=== PATIENT | female | born 1985 | race Caucasian/White ===

== ENCOUNTER 2018-10-17 18:14 | Emergency (ER) | payer OTHER, MEDICAID, SELFPAY ==
[2018-10-17 18:16] VITALS: BP 122/80; PULSE 104; RESP 22; TEMP 37.6; O2SAT 100; BMI 18.3
--- NOTE | 2018-10-17 20:53 | DI.CT.S_ITS ---
PROCEDURE: CT ANGIO HEAD AND NECK INDICATIONS: Headache, vision, trouble, vascular request for this imaging TECHNIQUE: Pre-contrast 4.5 mm thick sections acquired from the foramen magnum to the vertex. After the administration of intravenous contrast, 1 mm thick sections acquired from the aortic arch through the [place] of [place]. Post-contrast 4.5 mm thick sections then re-acquired from the foramen magnum to the vertex. 3-dimensional lrewbqs-rxmdlvvod-sbvllfildo (MIP) and/or volume rendering reformats were acquired of the central intracranial vasculature and neck separately. COMPARISON: None. FINDINGS: Image quality: Excellent. BRAIN: CSF spaces: Ventricles are normal in size and shape. Basal cisterns are patent. No extra-axial fluid collections. Brain: No midline shift. No intracranial bleeds or masses. [place]-white matter interface appears intact. Skull and face: Calvarium and facial bones appear intact, without suspicious lesions. Orbits appear normal. Sinuses: Sinuses and mastoids are clear. HEAD CT ANGIOGRAPHY: Anterior circulation: Intracranial internal carotid arteries are normal in size and flow. The flow within the paired anterior cerebral arteries is normal and symmetric. The flow within the middle cerebral arteries is normal and symmetric. The anterior communicating artery is seen. No aneurysms are seen. Posterior circulation: Visualized portions of the vertebral arteries demonstrate normal caliber, and join to form a normal appearing basilar artery. Flow within the posterior cerebral arteries is normal and symmetric. No aneurysms are seen. NECK CT ANGIOGRAPHY: Carotid system: The great vessels demonstrate a conventional anatomy as they arise from the aortic arch. The origins of the common carotid arteries appear patent. The common carotid arteries demonstrate normal caliber and courses. The bifurcation regions are both widely patent. The internal carotid arteries demonstrate normal calibers and courses. Posterior circulation: The origins of the vertebral arteries both appear widely patent. The more superior extracranial portions of both vertebral arteries also demonstrate normal courses and calibers. They join to form a normal appearing basilar artery. Soft tissues: Visualized neck soft tissues demonstrate no suspicious abnormalities. Bones: No suspicious bony lesions. Visualized cervical spine appears normally aligned. IMPRESSION: Normal neck angiogram. No significant discrepancy with the automotive leasing sales representative radiology preliminary report. Any quantitative measurements of stenosis were performed using NASCET criteria. Dictated by: Ranjana Hansen M.D. on 10/18/2018 at 7:55 Approved by: Ranjana Hansen M.D. on 10/18/2018 at 7:57
[2018-10-17 20:59] LABS: Add Manual Diff / Slide Review NO; Basophils Absolute Auto 100 /uL (0-100); Basophils Percent Auto 0.9 % (0-2); Eosinophils Absolute Auto 100 /uL (0-450); Hematocrit 40.8 % (36-46); Hemoglobin 13.6 g/dL (12.0-16.0); Lymphocytes Absolute Auto 2000 /uL (1100-4500); Mean Corpuscular HGB Conc 33.3 % (30-36); Mean Corpuscular Hemoglobin 25.8 PG (26-34); Mean Corpuscular Volume 77.6 fL (80-100); Monocytes Absolute Auto 600 /uL (0-900); Monocytes Percent Auto 7.5 % (3-14); Neutrophils Absolute Auto 4700 /uL (1500-7000); Neutrophils Percent Auto 63.6 % (50-75); Platelet Count 336 X10^3/uL (150-400); Red Blood Cell Count 5.25 X10^6/uL (4.0-5.2); Red Cell Distribution Width 13.7 % (11.6-14.8); White Blood Cell Count 7.4 X10^3/uL (4.5-11.0)
[2018-10-17 21:00] VITALS: BP 117/83; PULSE 79; O2SAT 99
[2018-10-17 21:05] LABS: Blood Urea Nitrogen 9 mg/dL (7-17); Calcium 9.8 mg/dL (8.4-10.2); Carbon Dioxide 27 mmol/L (22-32); Chloride 104 mmol/L (98-107); Estimated Glomerular Filt Rate > 60.0 mL/min (>60); Glucose 93 mg/dL (70-100); HEMOLYSIS < 15 (0-50); Potassium 3.4 mmol/L (3.4-5.1); Sodium 141 mmol/L (137-145)
[2018-10-17 22:26] VITALS: BP 113/80; PULSE 87; RESP 16; O2SAT 100
--- NOTE | 2018-10-17 22:36 | ED.NEUROSD ---
HPI - Neuro Symptoms/Deficit General Chief Complaint: Neuro Symptoms/Deficit Stated Complaint: blurry vision, headaches lt side, veins distending Time Seen by Provider: 10/17/18 20:11 Source: patient and family Mode of arrival: ambulatory Limitations: no limitations History of Present Illness HPI Narrative: 33-year-old female nonsmoker with extensive history vague neurologic symptoms including headaches, blurred vision and some bilateral shoulder and upper extremity pain. Years ago she had extensive evaluations and it was thought that she had subclavian steal syndrome. She has been placed on steroids and near complete resolution of symptoms for quite some time but her symptoms started up again a few months ago. She has an appointment with vascular surgery in about a month and they requested she obtain CT angiography of head and neck prior to that visit. Her symptoms have been present for quite some time but gradually worsening hence her visit to us. She denies any recent injury or travel. Onset (ago): month(s) Location: left arm History of same: Yes Severity: moderate Quality: tingling Relieving factors: none Exacerbating factors: none Context: gradual onset On Anticoagulants: No Associated symptoms: headaches and weakness Treatments Prior to Arrival: none Related Data Allergies Allergy/AdvReac Type Severity Reaction Status Date / Time metoprolol Allergy Verified 10/17/18 18:42 Review of Systems Constitutional Denies chills, Denies fever(s), Denies lethargy and Reports weakness Eyes Reports blurry vision, Denies change in vision, Denies eye discharge, Denies irritation and Denies loss of vision ENT Ears, Nose, Mouth, and Throat: Denies change in voice, Denies neck pain and Denies sore throat Cardiovascular Denies chest pain, Denies irregular heart rhythm, Denies lightheadedness, Denies palpitations, Denies dyspnea, Denies dyspnea on exertion and Denies orthopnea Respiratory Denies cough, Denies dyspnea, Denies dyspnea on exertion and Denies wheezing Gastrointestinal Gastrointestinal: Denies abdominal pain, Denies change in bowel habits, Denies diarrhea, Denies nausea and Denies vomiting Genitourinary Denies hematuria, Denies flank pain, Denies urinary incontinence and Denies urinary urgency Musculoskeletal Denies neck pain and Reports tingling Integumentary/Breasts Denies pruritus, Denies erythema, Denies rash and Denies wounds Neurologic Denies confusion, Denies loss of vision, Reports tingling, Reports paresthesias and Reports weakness Psychiatric Denies anxiety, Denies confusion, Denies depression, Denies homicidal ideation and Denies suicidal ideation Endocrine Denies palpitations Hematologic/Lymphatic Denies easy bruising Allergic/Immunologic Denies wheezing [facility] Social History Smoking Status: Never smoker Social History Smoking Status: Never smoker Exam Narrative Exam Narrative: GENERAL: 33-year-old female appears stated age, resting comfortably but anxious HEAD: Atraumatic. Normocephalic. No temporal or scalp tenderness. EYES: Pupils equal round and reactive. Extraocular motions intact. No scleral icterus. No injection or drainage. ENT: Nose without bleeding, purulent drainage or septal hematoma. Throat without erythema, tonsillar hypertrophy or exudate. Uvula midline. Airway patent. NECK: Trachea midline. No JVD or lymphadenopathy. Supple, nontender, no meningeal signs. CARDIOVASCULAR: Regular rate and rhythm without murmurs, gallops, or rubs. RESPIRATORY: Clear to auscultation. Breath sounds equal bilaterally. No wheezes, rales, or rhonchi. GASTROINTESTINAL: Abdomen soft, non-tender, nondistended. No hepato-splenomegaly, or palpable masses. No guarding. EXTREMITIES: No clubbing, cyanosis, or edema. No joint tenderness, effusion, or edema noted. BACK: Nontender without deformity or crepitance. No flank tenderness. NEURO: AOx3. SKIN: No rash or erythema. NIH Stroke Scale 1a. LOC: Patient is alert and keenly responsive (0) 1b. LOC Questions: Patient answers both LOC questions accurately (0) 1c. LOC Commands: Patient performs both tasks correctly (0) 2. Best Gaze: Normal (0) 3. Visual: No visual loss (0) 4. Facial palsy: Normal symmetrical movements (0) 5. Motor arm: No drift (0) 6. Motor leg: No drift (0) 7. Limb ataxia: Absent (0) 8. Sensory: Normal (0) 9. Best language: No aphasia; normal (0) 10. Dysarthria: Normal (0) 11. Extinction and inattention: No abnormality (0) NIHSS: 0 Initial Vital Signs Initial Vital Signs: Vital Signs Temperature 99.6 F 10/17/18 18:16 Pulse Rate 104 H 10/17/18 18:16 Respiratory Rate 22 10/17/18 18:16 Blood Pressure 122/80 10/17/18 18:16 Pulse Oximetry 100 10/17/18 18:16 Course Orders Ordered: ED Orders 10/17/18 20:30 Basic Metabolic Panel Stat Complete Blood Count AUTO DIFF Stat 10/17/18 20:53 CT angio head and neck Stat Vital Signs - 8 hr 10/17/18 21:00 10/17/18 22:26 10/17/18 23:00 Pulse Rate 79 87 80 Respiratory Rate 16 16 Blood Pressure [Left Arm] 117/83 113/80 113/72 Pulse Oximetry 99 100 100 MDM - Neuro Symptoms/Deficit Lab Data Result diagrams: 10/17/18 20:30 10/17/18 20:30 Lab Results 10/17/18 10/17/18 Range/Units 20:30 20:30 WBC 7.4 (4.5-11.0) X10^3/uL RBC 5.25 H (4.0-5.2) X10^6/uL Hgb 13.6 (12.0-16.0) g/dL Hct 40.8 (36-46) % MCV 77.6 L (80-100) fL MCH 25.8 L (26-34) PG MCHC 33.3 (30-36) % RDW 13.7 (11.6-14.8) % Plt Count 336 (150-400) X10^3/uL Neut % (Auto) 63.6 (50-75) % Lymph % (Auto) 27.0 (25-40) % [place] % (Auto) 7.5 (3-14) % Eos % (Auto) 1.0 L (2-4) % Baso % (Auto) 0.9 (0-2) % Neut # (Auto) 4700 (4403-2714) /uL Lymph # (Auto) 2000 (4516-5624) /uL [place] # (Auto) 600 (0-900) /uL Eos # (Auto) 100 (0-450) /uL Baso # (Auto) 100 (0-100) /uL Sodium 141 (137-145) mmol/L Potassium 3.4 (3.4-5.1) mmol/L Chloride 104 (98-107) mmol/L Carbon Dioxide 27 (22-32) mmol/L BUN 9 (7-17) mg/dL Creatinine 0.60 (0.52-1.04) mg/dL Estimated GFR > 60.0 (>60) mL/min BUN/Creatinine Ratio 15.0 (6-22) Glucose 93 (70-100) mg/dL Calcium 9.8 (8.4-10.2) mg/dL Point of Care Testing Test Results Negative Urine Dip Bedside Urine Glucose Negative Bedside Urine Bilirubin - Negative Bedside Urine Ketone - Negative Urine Specific [place] 1.015 Bedside Urine Occult Blood - Negative Bedside Urine pH 8.5 Bedside Urine Protein - Negative Bedside Urine Urobilinogen - Negative Bedside Urine Nitrite - Negative Bedside Urine Leukocytes - Negative Esterase Imaging Data CT scan - head: Radiologist's impression: Negative exam MDM Narrative Medical decision making narrative: Multiple etiologies for patient's symptoms considered including: [stroke vs. subclavian steal vs. other] Patient's symptoms improved or duration of stay with above-stated therapies. Findings and discharge diagnosis discussed with patient/family followed by verbalization of understanding Return precautions discussed with patient/family whom verbalize understanding. Discharge Plan Departure Patient Disposition: Home Clinical Impression: Dizziness Discharge Date/Time: 10/17/18 23:27 Interventions: ED Discharge Assessment Last Done: 10/17/18 23:27 Instructions: DI for Dizziness-Nonvertigo Activity Restrictions/Additional Instructions: *What to do: *Continue to take medications as directed *Follow up with your primary care provider in 2-3 days, call for an appointment. Let them know you were seen in the Emergency Department and that we ask that you be seen in follow up *Return to ER if you should have any new, worsening or concerning symptoms
[2018-10-17 23:00] VITALS: BP 113/72; PULSE 80; RESP 16; O2SAT 100
--- NOTE | 2018-10-18 03:16 | ED_ITS ---
HPI - Neuro Symptoms/Deficit General Chief Complaint: Neuro Symptoms/Deficit Stated Complaint: blurry vision, headaches lt side, veins distending Time Seen by Provider: 10/17/18 20:11 Source: patient and family Mode of arrival: ambulatory Limitations: no limitations History of Present Illness HPI Narrative: 33-year-old female nonsmoker with extensive history vague neurologic symptoms including headaches, blurred vision and some bilateral shoulder and upper extremity pain. Years ago she had extensive evaluations and it was thought that she had subclavian steal syndrome. She has been placed on steroids and near complete resolution of symptoms for quite some time but her symptoms started up again a few months ago. She has an appointment with vascular surgery in about a month and they requested she obtain CT angiography of head and neck prior to that visit. Her symptoms have been present for quite some time but gradually worsening hence her visit to us. She denies any recent injury or travel. Onset (ago): month(s) Location: left arm History of same: Yes Severity: moderate Quality: tingling Relieving factors: none Exacerbating factors: none Context: gradual onset On Anticoagulants: No Associated symptoms: headaches and weakness Treatments Prior to Arrival: none Related Data Allergies Allergy/AdvReac Type Severity Reaction Status Date / Time metoprolol Allergy Verified 10/17/18 18:42 Review of Systems Constitutional Denies chills, Denies fever(s), Denies lethargy and Reports weakness Eyes Reports blurry vision, Denies change in vision, Denies eye discharge, Denies irritation and Denies loss of vision ENT Ears, Nose, Mouth, and Throat: Denies change in voice, Denies neck pain and Denies sore throat Cardiovascular Denies chest pain, Denies irregular heart rhythm, Denies lightheadedness, Denies palpitations, Denies dyspnea, Denies dyspnea on exertion and Denies orthopnea Respiratory Denies cough, Denies dyspnea, Denies dyspnea on exertion and Denies wheezing Gastrointestinal Gastrointestinal: Denies abdominal pain, Denies change in bowel habits, Denies diarrhea, Denies nausea and Denies vomiting Genitourinary Denies hematuria, Denies flank pain, Denies urinary incontinence and Denies urinary urgency Musculoskeletal Denies neck pain and Reports tingling Integumentary/Breasts Denies pruritus, Denies erythema, Denies rash and Denies wounds Neurologic Denies confusion, Denies loss of vision, Reports tingling, Reports paresthesias and Reports weakness Psychiatric Denies anxiety, Denies confusion, Denies depression, Denies homicidal ideation and Denies suicidal ideation Endocrine Denies palpitations Hematologic/Lymphatic Denies easy bruising Allergic/Immunologic Denies wheezing [facility] Social History Smoking Status: Never smoker Social History Smoking Status: Never smoker Exam Narrative Exam Narrative: GENERAL: 33-year-old female appears stated age, resting comfortably but anxious HEAD: Atraumatic. Normocephalic. No temporal or scalp tenderness. EYES: Pupils equal round and reactive. Extraocular motions intact. No scleral icterus. No injection or drainage. ENT: Nose without bleeding, purulent drainage or septal hematoma. Throat without erythema, tonsillar hypertrophy or exudate. Uvula midline. Airway patent. NECK: Trachea midline. No JVD or lymphadenopathy. Supple, nontender, no me ningeal signs. CARDIOVASCULAR: Regular rate and rhythm without murmurs, gallops, or rubs. RESPIRATORY: Clear to auscultation. Breath sounds equal bilaterally. No wheezes, rales, or rhonchi. GASTROINTESTINAL: Abdomen soft, non-tender, nondistended. No hepato- splenomegaly, or palpable masses. No guarding. EXTREMITIES: No clubbing, cyanosis, or edema. No joint tenderness, effusion, or edema noted. BACK: Nontender without deformity or crepitance. No flank tenderness. NEURO: AOx3. SKIN: No rash or erythema. NIH Stroke Scale 1a. LOC: Patient is alert and keenly responsive (0) 1b. LOC Questions: Patient answers both LOC questions accurately (0) 1c. LOC Commands: Patient performs both tasks correctly (0) 2. Best Gaze: Normal (0) 3. Visual: No visual loss (0) 4. Facial palsy: Normal symmetrical movements (0) 5. Motor arm: No drift (0) 6. Motor leg: No drift (0) 7. Limb ataxia: Absent (0) 8. Sensory: Normal (0) 9. Best language: No aphasia; normal (0) 10. Dysarthria: Normal (0) 11. Extinction and inattention: No abnormality (0) NIHSS: 0 Initial Vital Signs Initial Vital Signs: Vital Signs Temperature 99.6 F 10/17/18 18:16 Pulse Rate 104 H 10/17/18 18:16 Respiratory Rate 22 10/17/18 18:16 Blood Pressure 122/80 10/17/18 18:16 Pulse Oximetry 100 10/17/18 18:16 Course Orders Ordered: ED Orders 10/17/18 20:30 Basic Metabolic Panel Stat Complete Blood Count AUTO DIFF Stat 10/17/18 20:53 CT angio head and neck Stat Vital Signs - 8 hr 10/17/18 21:00 10/17/18 22:26 10/17/18 23:00 Pulse Rate 79 87 80 Respiratory Rate 16 16 Blood Pressure [Left Arm] 117/83 113/80 113/72 Pulse Oximetry 99 100 100 MDM - Neuro Symptoms/Deficit Lab Data Result diagrams: 10/17/18 20:30 10/17/18 20:30 Lab Results 10/17/18 10/17/18 Range/Units 20:30 20:30 WBC 7.4 (4.5-11.0) X10^3/uL RBC 5.25 H (4.0-5.2) X10^6/uL Hgb 13.6 (12.0-16.0) g/dL Hct 40.8 (36-46) % MCV 77.6 L (80-100) fL MCH 25.8 L (26-34) PG MCHC 33.3 (30-36) % RDW 13.7 (11.6-14.8) % Plt Count 336 (150-400) X10^3/uL Neut % (Auto) 63.6 (50-75) % Lymph % (Auto) 27.0 (25-40) % [place] % (Auto) 7.5 (3-14) % Eos % (Auto) 1.0 L (2-4) % Baso % (Auto) 0.9 (0-2) % Neut # (Auto) 4700 (8512-2287) /uL Lymph # (Auto) 2000 (4375-9533) /uL [place] # (Auto) 600 (0-900) /uL Eos # (Auto) 100 (0-450) /uL Baso # (Auto) 100 (0-100) /uL Sodium 141 (137-145) mmol/L Potassium 3.4 (3.4-5.1) mmol/L Chloride 104 (98-107) mmol/L Carbon Dioxide 27 (22-32) mmol/L BUN 9 (7-17) mg/dL Creatinine 0.60 (0.52-1.04) mg/dL Estimated GFR > 60.0 (>60) mL/min BUN/Creatinine Ratio 15.0 (6-22) Glucose 93 (70-100) mg/dL Calcium 9.8 (8.4-10.2) mg/dL Point of Care Testing Test Results Negative Urine Dip Bedside Urine Glucose Negative Bedside Urine Bilirubin - Negative Bedside Urine Ketone - Negative Urine Specific [place] 1.015 Bedside Urine Occult Blood - Negative Bedside Urine pH 8.5 Bedside Urine Protein - Negative Bedside Urine Urobilinogen - Negative Bedside Urine Nitrite - Negative Bedside Urine Leukocytes - Negative Esterase Imaging Data CT scan - head: Radiologist's impression: Negative exam MDM Narrative Medical decision making narrative: Multiple etiologies for patient's symptoms considered including: [stroke vs. subclavian steal vs. other] Patient's symptoms improved or duration of stay with above-stated therapies. Findings and discharge diagnosis discussed with patient/family followed by verbalization of understanding Return precautions discussed with patient/family whom verbalize understanding. Discharge Plan Departure Patient Disposition: Home Clinical Impression: Dizziness Discharge Date/Time: 10/17/18 23:27 Interventions: ED Discharge Assessment Last Done: 10/17/18 23:27 Instructions: DI for Dizziness-Nonvertigo Activity Restrictions/Additional Instructions: *What to do: *Continue to take medications as directed *Follow up with your primary care provider in 2-3 days, call for an appointment. Let them know you were seen in the Emergency Department and that we ask that you be seen in follow up *Return to ER if you should have any new, worsening or concerning symptoms
== END 2018-10-17 23:27 | disposition home or self-care (01) ==
PROVIDERS: Emergency Provider Emergency Medicine
DX: R42 Dizziness and giddiness (principal); R51 Headache; H53.8 Other visual disturbances
CPT/HCPCS: 36591; 70496; 70498; 80048; 81003; 81025; 85025; 99283; 99284; Q9967

== ENCOUNTER 2018-10-31 22:34 | Emergency (ER) | payer OTHER, MEDICAID, SELFPAY ==
--- NOTE | 2018-10-31 22:43 | DI.RAD.S_ITS ---
PROCEDURE: XR CHEST 1V INDICATIONS: chest pain TECHNIQUE: One view of the chest was acquired. COMPARISON: None. FINDINGS: Surgical changes and devices: None. Lungs and pleura: Lungs are clear. No pleural effusions or pneumothorax. Mediastinum: Mediastinal contours appear normal. Heart size is normal. Bones and chest wall: No suspicious bony lesions. Overlying soft tissues appear unremarkable. IMPRESSION: No acute cardiopulmonary findings. Dictated by: Angelina Siddiqui M.D. on 11/01/2018 at 8:30 Approved by: Angelina Siddiqui M.D. on 11/01/2018 at 8:30
[2018-10-31 22:44] VITALS: BP 124/72; PULSE 78; RESP 15; TEMP 36.6; O2SAT 100; BMI 18.1
[2018-10-31 23:15] LABS: Add Manual Diff / Slide Review NO; Basophils Absolute Auto 0 /uL (0-100); Basophils Percent Auto 0.4 % (0-2); Eosinophils Absolute Auto 100 /uL (0-450); Eosinophils Percent Auto 1.2 % (2-4); Hematocrit 37.6 % (36-46); Hemoglobin 12.2 g/dL (12.0-16.0); Lymphocytes Absolute Auto 2200 /uL (1100-4500); Lymphocytes Percent Auto 29.7 % (25-40); Mean Corpuscular HGB Conc 32.5 % (30-36); Mean Corpuscular Hemoglobin 25.5 PG (26-34); Mean Corpuscular Volume 78.7 fL (80-100); Monocytes Absolute Auto 600 /uL (0-900); Monocytes Percent Auto 8.3 % (3-14); Neutrophils Absolute Auto 4400 /uL (1500-7000); Neutrophils Percent Auto 60.4 % (50-75); Platelet Count 275 X10^3/uL (150-400); Red Blood Cell Count 4.78 X10^6/uL (4.0-5.2); Red Cell Distribution Width 13.9 % (11.6-14.8); White Blood Cell Count 7.3 X10^3/uL (4.5-11.0)
--- NOTE | 2018-10-31 23:19 | PC.NURSE ---
Pt has had echo which showed leaky valve. Hx of vasculitis and treated with prednisone. Doing holter monitor thru PCP and in process of getting set up with cardiology, due to intermittent episodes of bradycardia. Has tingling/pain in arm, which is new for her. She does have some neck pain that has been ongoing. No known trauma.
[2018-10-31 23:21] LABS: INR 0.9 (0.9-1.3); Prothrombin Time 10.2 SECONDS (10.1-12.7)
[2018-10-31 23:23] LABS: Alanine Aminotransferase 12 IU/L (9-52); Albumin 3.8 g/dL (3.5-5.0); Albumin Globulin Ratio 1.4 (1.0-2.8); Alkaline Phosphatase 33 U/L (38-126); Aspartate Aminotransferase 14 IU/L (14-36); BUN Creatinine Ratio 21.7 (6-22); Bilirubin Total 0.3 mg/dL (0.2-1.3); Blood Urea Nitrogen 13 mg/dL (7-17); Calcium 8.9 mg/dL (8.4-10.2); Carbon Dioxide 27 mmol/L (22-32); Chloride 105 mmol/L (98-107); Creatine Kinase 25 U/L (30-135); Estimated Glomerular Filt Rate > 60.0 mL/min (>60); Globulin 2.7 g/dL (1.7-4.1); Glucose 91 mg/dL (70-100); HEMOLYSIS < 15 (0-50); Lipase 211 U/L (23-300); Potassium 3.9 mmol/L (3.4-5.1); Sodium 139 mmol/L (137-145); Total Protein 6.5 g/dL (6.3-8.2)
[2018-10-31 23:24] LABS: PTT Partial Thromboplastin Tim 28 SECONDS (26.4-36.2)
[2018-10-31 23:35] LABS: Troponin I < 0.012 ng/mL (0.01-0.034)
--- NOTE | 2018-10-31 23:45 | ED_ITS ---
HPI - Chest Pain General Chief Complaint: Chest Pain Stated Complaint: states heart issues Time Seen by Provider: 10/31/18 23:12 Source: patient Mode of arrival: ambulatory Limitations: no limitations History of Present Illness HPI narrative: 33-year-old female comes in with complaint of chest pain for 1 month. She states that it worsened about 3 days ago. She states in her left arm radiating in her shoulder between her shoulder blades and chest. She states that it is worse when her left arm is up and she is using about her head frequently. She states that Motrin helped. She states that her left arm numb. Patient states that it can happen while she is walking. Um she states it does not seem to always be associated with exertion. Patient states sometimes she feels dizzy or lightheaded, she denies any syncope no shortness of breath. No difficulty with thumb breathing but sometimes feels like she is getting enough air. She states she does not increase her respiratory rate. She sometimes feels nauseated, she denies any vomiting. No diarrhea, no constipation or urinary issues. She states that she takes cyclobenzaprine for muscle spasms in her neck. She sometimes takes prednisone which also seems to help. She denies any prior surgeries. No tobacco, alcohol or illicit. Her father had a CABG in his 50s along with several uncles who in their 50s from cardiac issues. No other pulmonary or embolic history in family. Her primary care has had her see cardiology. She saw cardiology in telling him and was referred to Dr. Chahal. She had an episode of tachycardia in the 170 range overnight while wearing a ZIO patch. She states she had an echo recently that showed a small leak for 1 of the valves. Related Data Allergies Allergy/AdvReac Type Severity Reaction Status Date / Time metoprolol Allergy Verified 10/31/18 22:43 Review of Systems Review of Systems ROS Unobtainable: All systems reviewed & are unremarkable except as noted in HPI and below Constitutional Denies chills, Denies fever(s), Denies lethargy and Denies weakness ENT Ears, Nose, Mouth, and Throat: Reports neck pain Cardiovascular Reports chest pain, Denies chest pain at rest, Reports chest pain with activity (Movement of left), Denies diaphoresis, Denies syncope, Reports rapid heart rate (Had tachycardia on ZIO patch), Denies edema, Denies irregular heart rhythm, Denies lightheadedness, Denies palpitations, Denies dyspnea, Denies dyspnea on exertion and Denies orthopnea Respiratory Denies change in phlegm color, Denies chest congestion, Denies cough, Denies dyspnea, Denies dyspnea on exertion and Denies wheezing Gastrointestinal Gastrointestinal: Denies abdominal pain, Denies melena, Denies hematochezia, Denies change in bowel habits, Denies diarrhea, Reports nausea and Denies vomiting Genitourinary Denies hematuria, Denies urinary frequency, Denies dysuria, Denies flank pain and Denies urinary urgency Musculoskeletal Reports as per HPI, Reports arthralgias (Left arm), Denies muscle weakness, Reports neck pain and Reports tingling (Left arm) Integumentary/Breasts Denies erythema, Denies rash and Denies unusual bruising Neurologic Denies syncope, Denies focal weakness, Denies sensory deficit, Reports tingling (Left arm) and Denies weakness Endocrine Denies palpitations Allergic/Immunologic Denies wheezing [facility] Social History Smoking Status: Never smoker Social History Smoking Status: Never smoker Exam Narrative Exam Narrative: GENERAL: Alert and oriented x three, thin, well-appearing female in no acute distress. HEENT: Head normocephalic, atraumatic, EOMI, pupils reactive, face symmetric, moist mucous membranes NECK: Supple, full range of motion CARDIOVASCULAR: Regular rate and rhythm without murmurs, rubs or gallops. No JVD. No edema in lower extremities. 2+ pulses all 4 extremities RESPIRATORY: Breath sounds equal bilaterally, no wheezes rales or rhonchi. No tachypnea accessory muscle use. ABDOMEN: Soft, nontender. Normoactive bowel sounds all 4 quadrants. No guarding or rebound, rigidity, no mass : No CVA tenderness EXTREMITIES: Normal range of motion, no clubbing or edema. Neurovascularly intact NEUROLOGICAL: Cranial nerves II through XII grossly intact. Moving all extremities SKIN: Warm, dry, no petechiae, no rashes or lesions. Initial Vital Signs Initial Vital Signs: Vital Signs Temperature 97.8 F 10/31/18 22:44 Pulse Rate 78 10/31/18 22:44 Respiratory Rate 15 10/31/18 22:44 Blood Pressure 124/72 10/31/18 22:44 Pulse Oximetry 100 10/31/18 22:44 Scores HEART Score Heart Score history: Slightly Suspicious Heart Score EKG: Normal Heart Score Age: < 45 years old Heart Score risk factors: 1-2 risk factors Heart Score troponin: < or = to normal limit Heart Score Total: 1 PERC Score Age greater than or equal to 50 years: No Heart rate greater than or equal to 100 bpm: No Room Air O2 Sat less than 95%: No Unilateral leg swelling: No Recent trauma or surgery: No Hemoptysis: No Prior PE or DVT: No Hormone Use: No Total PERC Score: 0 Course Orders Ordered: ED Orders 10/31/18 22:43 XR chest 1V Stat EKG-12 Lead Stat 10/31/18 22:51 Complete Blood Count AUTO DIFF Stat Comprehensive Metabolic Panel Stat Lipase Stat Partial Thromboplastin Time Stat Prothrombin Time INR Stat Troponin & CK Cardiac Panel Stat Vital Signs - 8 hr 10/31/18 22:44 11/01/18 00:29 Temperature 97.8 F Pulse Rate 78 78 Respiratory Rate 15 16 Blood Pressure 124/72 Blood Pressure [Left Arm] 104/65 Pulse Oximetry 100 100 MDM - Chest Pain Lab Data Attestation: I reviewed the patient's lab results. Result diagrams: 10/31/18 22:51 10/31/18 22:51 Lab Results 10/31/18 10/31/18 10/31/18 Range/Units 22:51 22:51 22:51 WBC 7.3 (4.5-11.0) X10^3/uL RBC 4.78 (4.0-5.2) X10^6/uL Hgb 12.2 (12.0-16.0) g/dL Hct 37.6 (36-46) % MCV 78.7 L (80-100) fL MCH 25.5 L (26-34) PG MCHC 32.5 (30-36) % RDW 13.9 (11.6-14.8) % Plt Count 275 (150-400) X10^3/uL Neut % (Auto) 60.4 (50-75) % Lymph % (Auto) 29.7 (25-40) % [place] % (Auto) 8.3 (3-14) % Eos % (Auto) 1.2 L (2-4) % Baso % (Auto) 0.4 (0-2) % Neut # (Auto) 4400 (6992-0619) /uL Lymph # (Auto) 2200 (0623-4257) /uL [place] # (Auto) 600 (0-900) /uL Eos # (Auto) 100 (0-450) /uL Baso # (Auto) 0 (0-100) /uL PT 10.2 (10.1-12.7) SECONDS INR 0.9 (0.9-1.3) APTT 28 (26.4-36.2) SECONDS Sodium 139 (137-145) mmol/L Potassium 3.9 (3.4-5.1) mmol/L Chloride 105 (98-107) mmol/L Carbon Dioxide 27 (22-32) mmol/L BUN 13 (7-17) mg/dL Creatinine 0.60 (0.52-1.04) mg/dL Estimated GFR > 60.0 (>60) mL/min BUN/Creatinine Ratio 21.7 (6-22) Glucose 91 (70-100) mg/dL Calcium 8.9 (8.4-10.2) mg/dL Total Bilirubin 0.3 (0.2-1.3) mg/dL AST 14 (14-36) IU/L ALT 12 (9-52) IU/L Alkaline Phosphatase 33 L (38-126) U/L Total Creatine Kinase 25 L (30-135) U/L CK-MB (CK-2) TNP CK-MB (CK-2) Rel Index TNP Troponin I < 0.012 (0.01-0.034) ng/mL Total Protein 6.5 (6.3-8.2) g/dL Albumin 3.8 (3.5-5.0) g/dL Globulin 2.7 (1.7-4.1) g/dL Albumin/Globulin Ratio 1.4 (1.0-2.8) Lipase 211 (23-300) U/L Point of Care Testing Test Results Negative Imaging Data Chest x-ray: Attestation: I personally reviewed and interpreted this imaging study as follows: My impression: nap, no pneumothorax, no infiltrate. Normal mediastinum. No fracture. ECG Data Attestation: I personally reviewed and interpreted this ECG as follows: Prior ECG tracings: not available for review Interpretation: Sinus rhythm with a rate of 72 P are 141 QRS 86 and QTC of 383. No ST elevation or depression appreciated. No prior available. MDM Narrative Medical decision making narrative: By patient's description I suspect her left after extremity pain which is worse with movement of her left upper extremity is more related to musculoskeletal issues. She does feel like she may have been having some other cardiac issues and is in the process of getting in to see Dr. Chahal. She has been following with her regular telecommunications field engineer. There are no findings of cardiac arrhythmias today, troponin is negative, chest x-ray is clear. Lab work does not show any other major changes. Patient felt comfortable with this plan and following up. Discharge Plan Departure Patient Disposition: Home Clinical Impression: Atypical chest pain, Numbness and tingling in left arm Discharge Date/Time: 11/01/18 00:58 Interventions: ED Discharge Assessment Last Done: 11/01/18 00:58 Instructions: DI for Atypical Chest Pain Activity Restrictions/Additional Instructions: Follow-up with your physician in the next 24-48 hours for recheck. If you prefer you can follow up with your telecommunications field engineer. Continue any home medications as prescribed by your physician. You may continue ibuprofen up to 800 mg every 8 hours. You may also take Tylenol up to a 1000 mg every 8 hours as needed. Return to the emergency department for fevers greater than 100.4 F, passing out, persistent vomiting, any chest pain, shortness of breath, black or bloody stools, swelling of her extremities or other new or concerning symptoms. Referrals: Rikki Chahal MD [Physician] -
[2018-11-01 00:29] VITALS: BP 104/65; PULSE 78; RESP 16; O2SAT 100
== END 2018-11-01 00:58 | disposition home or self-care (01) ==
PROVIDERS: Emergency Provider Emergency Medicine
DX: R07.89 Other chest pain (principal); R20.0 Anesthesia of skin
CPT/HCPCS: 36591; 71045; 80053; 81025; 82550; 83690; 84484; 85025; 85610; 85730; 93005; 99283; 99285

== ENCOUNTER 2019-01-24 00:59 | Emergency (ER) | payer OTHER, MEDICAID, SELFPAY ==
--- NOTE | 2019-01-24 01:04 | DI.RAD.S_ITS ---
PROCEDURE: XR CHEST 1V INDICATIONS: chest pain TECHNIQUE: One view of the chest was acquired. COMPARISON: [facility], CR, XR CHEST 1V, 10/31/2018, 23:05. FINDINGS: Surgical changes and devices: None. Lungs and pleura: Lungs are clear. No pleural effusions or pneumothorax. Mediastinum: Mediastinal contours appear normal. Heart size is normal. Bones and chest wall: No suspicious bony lesions. Overlying soft tissues appear unremarkable. IMPRESSION: No acute disease. Dictated by: Jf Arthur M.D. on 01/24/2019 at 8:59 Approved by: Jf Arthur M.D. on 01/24/2019 at 9:00
[2019-01-24 01:12] VITALS: BP 131/93; PULSE 85; RESP 16; TEMP 36.4; O2SAT 100; BMI 18.1
--- NOTE | 2019-01-24 01:38 | ED_ITS ---
HPI - Chest Pain General Chief Complaint: Chest Pain Stated Complaint: nausea chest pain irregular heartbeat Time Seen by Provider: 01/24/19 01:03 Source: patient Mode of arrival: Ambulatory Limitations: no limitations History of Present Illness HPI narrative: 33-year-old female here for evaluation of left-sided chest discomfort. She also states that she feels a ?bubbling? sensation that starts in her epigastric region and moves up to the left side of her neck. This does not appear to be new symptoms. She has had an endoscopy in the past for dysphagia. She states that when she eats she does feel like that her stomach states full for an extended period of time. She denies any nausea. No problems breathing. Has not tried anything for symptoms prior to arrival Related Data Previous Rx's Medication Instructions Recorded metoclopramide HCl [Reglan] 10 mg PO Q6H PRN #14 tab 01/24/19 Allergies Allergy/AdvReac Type Severity Reaction Status Date / Time metoprolol Allergy Verified 01/24/19 01:12 Review of Systems Constitutional Constitutional: Denies fever(s) and Denies headache(s) ENT Ears, Nose, Mouth, and Throat: Denies headache(s) Cardiovascular Cardiovascular: Reports chest pain, Denies edema, Denies palpitations and Denies dyspnea Respiratory Respiratory: Denies dyspnea Gastrointestinal Gastrointestinal: Reports abdominal pain (Epigastric), Denies belching, Denies nausea and Denies vomiting Genitourinary Genitourinary: Denies dysuria Musculoskeletal Musculoskeletal: Denies back pain and Denies arthralgias Integumentary/Breasts Skin/Breast: Denies lesions and Denies rash Neurologic Neurologic: Denies behavioral changes and Denies headache(s) Psychiatric Psychiatric: Denies behavioral changes Endocrine Endocrine: Denies palpitations Hematologic/Lymphatic Hematologic/Lymphatic: Denies easy bleeding and Denies easy bruising [facility] Medical History Dysphagia (Acute) Heart palpitations (Inactive) Family History (Updated 10/31/18 @ 23:49 by Daisy Charles DO) Father Hx of CABG Social History Smoking Status: Never smoker Social History Smoking Status: Never smoker Exam Initial Vital Signs Initial Vital Signs: Vital Signs Temperature 97.6 F 01/24/19 01:12 Pulse Rate 85 01/24/19 01:12 Respiratory Rate 16 01/24/19 01:12 Blood Pressure 131/93 H 01/24/19 01:12 Pulse Oximetry 100 01/24/19 01:12 Const General: cooperative and comfortable Orientation: alert and awake HENMT Head: normal to inspection and normocephalic Resp Effort & Inspection: normal respiratory effort Auscultation: clear to auscultation bilaterally Cardio Rate: regular rate Rhythm: regular rhythm GI Inspection: non-distended Palpation: soft Skin Lesions: no lesions Rashes: no rashes Neuro General: alert, awake and oriented x3 Cognition: normal cognition Speech: speech normal Motor: muscle tone normal throughout Extrem General: normal to inspection and capillary refill normal Psych Appearance: grossly normal and well kempt Course Orders Ordered: ED Orders 01/24/19 01:04 XR chest 1V Stat EKG-12 Lead Stat Vital Signs Vital signs: Vital Signs - 8 hr 01/24/19 01:12 01/24/19 02:00 Temperature 97.6 F Pulse Rate 85 64 Respiratory Rate 16 16 Blood Pressure 131/93 H 103/73 Pulse Oximetry 100 96 MDM - Chest Pain Imaging Data Chest x-ray: Attestation: I personally reviewed and interpreted this imaging study as follows: My impression: Normal size heart, no free air, no pneumonia ECG Data Attestation: I personally reviewed and interpreted this ECG as follows: Prior ECG tracings: not available for review Interpretation: Sinus rhythm Normal axis Normal QRS Normal QTC No ST T wave changes MDM Narrative Medical decision making narrative: I have low suspicion for ACS. Her chest x- ray is negative. Her EKG is unremarkable. I do suspect this is GI related. It is epigastric pain that ?bubbles? up and left side of her neck. She states that she has had a barium swallow in the past which she reports was unremarkable. She has had a Holter monitor in the past which showed SVT. She has had no ectopy here in the ER. Will hold on further workup for now. Doubt emergent condition. Will have the patient follow with primary provider. She expressed understanding and agreement with plan. Discharge Plan Departure Patient Disposition: Home Clinical Impression: Heart palpitations Discharge Date/Time: 01/24/19 02:00 Instructions: DI for Arrhythmias Activity Restrictions/Additional Instructions: Take the Reglan/metoclopramide as needed and as directed. I do recommend tomorrow you contact the travel registered nurse icu to find out the status of her Holter monitor. Contact your primary doctor to discuss the indications for referral to see Gastroenterology. Return to the emergency department for any new or worsening symptoms Prescriptions: New metoclopramide HCl [Reglan] 10 mg tablet 10 mg PO Q6H PRN (Reason: nausea and vomiting) Qty: 14 RF: 0
[2019-01-24 02:00] VITALS: BP 103/73; PULSE 64; RESP 16; O2SAT 96
== END 2019-01-24 02:00 | disposition home or self-care (01) ==
PROVIDERS: Emergency Provider Emergency Medicine
DX: R00.2 Palpitations (principal)
CPT/HCPCS: 71045; 93005; 99282; 99284

== ENCOUNTER 2019-03-21 23:41 | Emergency (ER) | payer OTHER, MEDICAID, SELFPAY ==
[2019-03-21 23:52] VITALS: BP 159/92; PULSE 77; RESP 16; TEMP 37; O2SAT 98; BMI 18.1
--- NOTE | 2019-03-22 00:12 | DI.RAD.S_ITS ---
PROCEDURE: XR CHEST 1V INDICATIONS: chest pain TECHNIQUE: One view of the chest was acquired. COMPARISON: [facility], CT, CT ANGIO HEAD AND NECK, 10/17/2018, 21:49. [facility], CR, XR CHEST 1V, 10/31/2018, 23:05. [facility], CR, XR CHEST 1V, 01/24/2019, 1:08. FINDINGS: Surgical changes and devices: None. Lungs and pleura: Biapical scars. Lungs are otherwise clear. No pleural effusions or pneumothorax. Mediastinum: Mediastinal contours appear normal. Heart size is normal. Bones and chest wall: No suspicious bony lesions. Overlying soft tissues appear unremarkable. IMPRESSION: No acute cardiopulmonary disease. Dictated by: Ranjana Hansen M.D. on 03/22/2019 at 8:30 Approved by: Ranjana Hansen M.D. on 03/22/2019 at 8:31
[2019-03-22 00:23] LABS: Add Manual Diff / Slide Review NO; Basophils Absolute Auto 100 /uL (0-100); Basophils Percent Auto 0.9 % (0-2); Eosinophils Absolute Auto 100 /uL (0-450); Eosinophils Percent Auto 1.6 % (2-4); Hematocrit 42.1 % (36-46); Hemoglobin 13.8 g/dL (12.0-16.0); Lymphocytes Absolute Auto 2700 /uL (1100-4500); Lymphocytes Percent Auto 42.5 % (25-40); Mean Corpuscular HGB Conc 32.7 % (30-36); Mean Corpuscular Hemoglobin 25.5 PG (26-34); Mean Corpuscular Volume 77.8 fL (80-100); Monocytes Absolute Auto 500 /uL (0-900); Monocytes Percent Auto 8.2 % (3-14); Neutrophils Absolute Auto 3000 /uL (1500-7000); Neutrophils Percent Auto 46.8 % (50-75); Platelet Count 299 X10^3/uL (150-400); Red Blood Cell Count 5.41 X10^6/uL (4.0-5.2); Red Cell Distribution Width 13.6 % (11.6-14.8); White Blood Cell Count 6.3 X10^3/uL (4.5-11.0)
[2019-03-22 00:26] LABS: Alanine Aminotransferase 11 IU/L (<35); Albumin 4.6 g/dL (3.5-5.0); Albumin Globulin Ratio 1.7 (1.0-2.8); Alkaline Phosphatase 48 U/L (38-126); Aspartate Aminotransferase 25 IU/L (14-36); BUN Creatinine Ratio 23.3 (6-22); Bilirubin Total 0.5 mg/dL (0.2-1.3); Blood Urea Nitrogen 14 mg/dL (7-17); Calcium 9.5 mg/dL (8.4-10.2); Carbon Dioxide 27 mmol/L (22-32); Chloride 103 mmol/L (98-107); Creatine Kinase 38 U/L (30-135); Estimated Glomerular Filt Rate > 60.0 mL/min (>60); Globulin 2.7 g/dL (1.7-4.1); Glucose 85 mg/dL (70-100); HEMOLYSIS 29 (0-50); Lipase 208 U/L (23-300); Potassium 3.4 mmol/L (3.4-5.1); Sodium 137 mmol/L (137-145); Total Protein 7.3 g/dL (6.3-8.2)
[2019-03-22 00:28] LABS: INR 0.9 (0.9-1.3); PTT Partial Thromboplastin Tim 29 SECONDS (26.4-36.2); Prothrombin Time 10.3 SECONDS (10.1-12.7)
--- NOTE | 2019-03-22 00:29 | ED_ITS ---
HPI - Chest Pain General Chief Complaint: Chest Pain Stated Complaint: feels Bubbling in chest, chest pain Time Seen by Provider: 03/22/19 00:29 Source: patient and family (mother) Mode of arrival: Family Vehicle Limitations: no limitations History of Present Illness HPI narrative: This is a 33-year-old female comes to the emergency department complaining of a bubbling feeling in her chest the left side of her neck. Patient states this is been going on for 3 months. She has been seen here before for this. She states she had EGD dilation 3 months ago and since then has felt like this bubbling sensation. She states she had fevers and night sweats initially after this and that her heart rate was up and down. She states she has been taking antibiotics on intermittently for the past 3 months including Augmentin and tetracyclines. She states that she has not had any episodes of passing no chest pain or pressure, no shortness of breath. Some mild nausea but no vomiting. Normal bowel movements, normal urination with no vaginal discharge or bleeding. She did see Cardiology she had a Holter monitor they did note SVT. Related Data Previous Rx's Medication Instructions Recorded metoclopramide HCl [Reglan] 10 mg PO Q6H PRN #14 tab 01/24/19 Allergies Allergy/AdvReac Type Severity Reaction Status Date / Time metoprolol Allergy Verified 01/24/19 01:12 Patient History Social History Smoking Status: Never smoker alcohol intake frequency: holidays/special occasions only Substance Use Type: does not use Exam Narrative Exam Narrative: GENERAL: Alert and oriented x three, thin female in mild distress. Patient appears anxious. HEENT: Head normocephalic, atraumatic, EOMI, pupils reactive, face symmetric, moist mucous membranes, hoarseness or muffled voice. NECK: Supple, full range of motion, no thyromegaly. No carotid bruit. Nontender to touch. CARDIOVASCULAR: Regular rate and rhythm without murmurs, rubs or gallops. No erythema or skin changes. RESPIRATORY: Breath sounds equal bilaterally, no wheezes rales or rhonchi. ABDOMEN: Soft, nontender. Normoactive bowel sounds all 4 quadrants. No gu arding or rebound, rigidity, no mass : No CVA tenderness EXTREMITIES: Normal range of motion, no clubbing or edema. Neurovascularly intact NEUROLOGICAL: Cranial nerves II through XII grossly intact. Moving all extremities SKIN: Warm, dry, no petechiae, no rashes or lesions. Initial Vital Signs Initial Vital Signs: Vital Signs Temperature 98.6 F 03/21/19 23:52 Pulse Rate 77 03/21/19 23:52 Respiratory Rate 16 03/21/19 23:52 Blood Pressure 159/92 H 03/21/19 23:52 Pulse Oximetry 98 03/21/19 23:52 Course Orders Ordered: ED Orders 03/21/19 23:52 EKG-12 Lead Routine 03/22/19 00:02 Complete Blood Count AUTO DIFF Stat Comprehensive Metabolic Panel Stat Lipase Stat Partial Thromboplastin Time Stat Prothrombin Time INR Stat Troponin & CK Cardiac Panel Stat 03/22/19 00:12 XR chest 1V Stat Vital Signs Vital signs: Vital Signs - 8 hr 03/21/19 23:52 03/22/19 01:16 Temperature 98.6 F Pulse Rate 77 71 Respiratory Rate 16 16 Blood Pressure 159/92 H Blood Pressure [Right Arm] 144/77 H Pulse Oximetry 98 100 MDM - Chest Pain Lab Data Attestation: I reviewed the patient's lab results. Result diagrams: 03/22/19 00:02 03/22/19 00:02 Labs: Lab Results 03/22/19 03/22/19 03/22/19 Range/Units 00:02 00:02 00:02 WBC 6.3 (4.5-11.0) X10^3/uL RBC 5.41 H (4.0-5.2) X10^6/uL Hgb 13.8 (12.0-16.0) g/dL Hct 42.1 (36-46) % MCV 77.8 L (80-100) fL MCH 25.5 L (26-34) PG MCHC 32.7 (30-36) % RDW 13.6 (11.6-14.8) % Plt Count 299 (150-400) X10^3/uL Neut % (Auto) 46.8 L (50-75) % Lymph % (Auto) 42.5 H (25-40) % [place] % (Auto) 8.2 (3-14) % Eos % (Auto) 1.6 L (2-4) % Baso % (Auto) 0.9 (0-2) % Neut # (Auto) 3000 (4324-9408) /uL Lymph # (Auto) 2700 (1539-0342) /uL [place] # (Auto) 500 (0-900) /uL Eos # (Auto) 100 (0-450) /uL Baso # (Auto) 100 (0-100) /uL PT 10.3 (10.1-12.7) SECONDS INR 0.9 (0.9-1.3) APTT 29 (26.4-36.2) SECONDS Sodium 137 (137-145) mmol/L Potassium 3.4 (3.4-5.1) mmol/L Chloride 103 (98-107) mmol/L Carbon Dioxide 27 (22-32) mmol/L BUN 14 (7-17) mg/dL Creatinine 0.60 (0.52-1.04) mg/dL Estimated GFR > 60.0 (>60) mL/min BUN/Creatinine Ratio 23.3 H (6-22) Glucose 85 (70-100) mg/dL Calcium 9.5 (8.4-10.2) mg/dL Total Bilirubin 0.5 (0.2-1.3) mg/dL AST 25 (14-36) IU/L ALT 11 (<35) IU/L Alkaline Phosphatase 48 (38-126) U/L Total Creatine Kinase 38 (30-135) U/L CK-MB (CK-2) TNP CK-MB (CK-2) Rel Index TNP Troponin I < 0.012 (0.01-0.034) ng/mL Total Protein 7.3 (6.3-8.2) g/dL Albumin 4.6 (3.5-5.0) g/dL Globulin 2.7 (1.7-4.1) g/dL Albumin/Globulin Ratio 1.7 (1.0-2.8) Lipase 208 (23-300) U/L Imaging Data Chest x-ray: Attestation: I personally reviewed and interpreted this imaging study as follows: My impression: nap, similar to prior. ECG Data Attestation: I personally reviewed and interpreted this ECG as follows: Prior ECG tracings: available for review Interpretation: Sinus rhythm with a rate of 76 HI 112, QRS 89 and QTC of 416. No ST elevation or depression. Patient has prior EKGs for comparison from 01/24/2019 and 10/31/2018. [facility] Narrative Medical decision making narrative: Patient comes in with a bubbly type feeling in her chest. She is quite worried about potential esophageal perforation 3 months ago. We discussed that if she had a perforation either would have de clared itself a large or potentially healed within the last 3 months. They are requesting a swallow study and we discussed that this is not something I can obtain at night in the emergency department but that her primary care physician could potentially order this. With the prolonged time frame of her symptoms I think it would be appropriate for this to be included in outpatient workup. Patient has been getting antibiotics regularly from her father she states her GP did not choose or felt it was inappropriate to treat with antibiotics. I do not feel that I would give her antibiotics today her vital signs, EKG, chest x-ray and lab work do not show any acute changes that are suspicious for an emergent condition. Patient is quite anxious about this she has been seen here before for this issue. She did ask me to examine her while she drink water to feel the bubbles I did not appreciate them on physical exam. Discharge Plan Departure Patient Disposition: Home Clinical Impression: Discomfort of neck Discharge Date/Time: 03/22/19 01:16 Activity Restrictions/Additional Instructions: Follow up with your physician, call in the morning. You can discuss about possibly doing a swallow study. It would be appropriate to follow up with cardiology to review your symptoms as well. Continue your home medications as prescribed. Return for fevers greater than 100.4F, passing out, persistent vomiting, new or changing symptoms, new rashes, skin changes or other new or concerning symptoms. Prescriptions: No Action metoclopramide HCl [Reglan] 10 mg tablet 10 mg PO Q6H PRN (Reason: nausea and vomiting) Qty: 14 RF: 0 Referrals: Aly Saunders [Non-Staff] -
[2019-03-22 00:38] LABS: Troponin I < 0.012 ng/mL (0.01-0.034)
[2019-03-22 01:16] VITALS: BP 144/77; PULSE 71; RESP 16; O2SAT 100
== END 2019-03-22 01:16 | disposition home or self-care (01) ==
PROVIDERS: Emergency Provider Emergency Medicine
DX: M54.2 Cervicalgia (principal); R07.9 Chest pain, unspecified
CPT/HCPCS: 36415; 71045; 80053; 82550; 83690; 84484; 85025; 85610; 85730; 93005; 99283; 99285